=== PATIENT | male | born 1965 | race Caucasian/White ===

== ENCOUNTER → 2017-07-29 | Outpatient (CLI) | payer SELFPAY ==
--- NOTE | 2017-07-29 16:19 | CT ---
CT Calcium Score Clinical information: 52-year-old male for coronary artery disease risk assessment. Comparison: None. ECG Gating: Prospective Scan range: Pulmonary artery bifurcation to diaphragm. Findings: Examination quality: Good. Limitation: None. Total calcium score: 281 Total volume score: 240 mm3 Percentile: 75-90 % Artery scores Left main coronary artery: 51 Left anterior descending artery: 179 Left circumflex artery: 0 Right coronary artery: 51 Other findings: Cardiac chambers: Unremarkable. Cardiac valves: Mild atherosclerotic calcification of the aortic annulus as well as the coronary vess els. Thoracic aorta: Unremarkable. Lungs: Unremarkable. Upper abdomen: Unremarkable. Impression: Total calcium score 281 that implies definite, moderate plaque with mild coronary artery disease like ly and moderate risk of coronary event within the next 5 years. Reported By:
== END ==
LOC: RAD 15:07
PROVIDERS: ATTEND Family Medicine
DX: Z13.6 Encounter for screening for cardiovascular disorders (principal)